=== PATIENT | female | born 1990 | race Caucasian/White ===

== ENCOUNTER 2019-11-23 12:54 | Outpatient (CLI) | payer BC, SELFPAY ==
--- NOTE | ~2019-11-23 | XR_ITS ---
EXAMINATION: XR shoulder RT min 2V INDICATION: Right shoulder pain TECHNIQUE: Four views of the right shoulder are submitted. COMPARISON: None FINDINGS: Normal alignment. No fracture. Glenohumeral and acromioclavicular joint spaces are normal. Soft tissues are unremarkable. IMPRESSION: 1. No acute osseous abnormality. Reviewed, dictated and finalized at location A.
--- NOTE | ~2019-11-23 | CT_ITS ---
EXAMINATION: CT brain wo con EXAM DATE: 11/23/2019 13:24 INDICATION: New daily persistent headaches. TECHNIQUE: Spiral CT of the head was performed without contrast. Axial, coronal and sagittal images were reviewed. The dose-length product (DLP) for this examination was 605.33 mGy-cm. The exposure w as tailored according to patient size, and iterative reconstruction (ASIR) was used as additional dos e reduction technique. There is no prior study for comparison. FINDINGS: There is small mass like region in the left frontal lobe periventricular white matter exten ding to the subependymal region, slightly bulging into the lateral ventricle, measuring about 7 x 7 x 13 mm. Most of this is slightly hyperdense, with several coarse calcifications also present. There i s no surrounding vasogenic edema, although MRI is more sensitive for this. Most likely benign finding , with some top differential possibilities including cavernoma, solitary tuber, less likely arteriove nous malformation (no evidence of serpiginous vessels). A follow-up nonemergent brain MRI examination without and with contrast is recommended for further evaluation. There is no acute intraparenchymal hemorrhage. No evidence of acute infarction. There is no mass ef fect or midline shift. The ventricles are normal in size. There are no extra-axial collections. Th ere are no acute calvarial fractures. The orbits are unremarkable. Soft tissue is unremarkable. The visualized sinuses and mastoid air cells are well aerated. IMPRESSION: Small left frontal periventricular, subependymal mass, could be cavernoma, solitary tuber , less likely arteriovenous malformation or other histology. Recommend brain MRI without and with con trast. Reviewed, dictated and finalized at location A. IMPRESSION: Small left frontal periventricular, subependymal mass, could be cav ernoma, solitary tuber, less likely arteriovenous malformation or other histolo gy. Recommend brain MRI without and with contrast.
== END 2019-11-23 12:55 | disposition home or self-care (01) ==
PROVIDERS: PCP Family Medicine; Visit Provider Nurse Practitioner
DX: M25.511 Pain in right shoulder (principal); G44.52 New daily persistent headache (NDPH)
CPT/HCPCS: 70450; 73030

== ENCOUNTER 2019-11-24 14:44 | Emergency (ER) | payer BC, SELFPAY ==
--- NOTE | ~2019-11-24 | XR_ITS ---
EXAMINATION: XR chest 1V portable INDICATION: Shortness of breath and diffuse chest pain TECHNIQUE: Portable AP chest at 1535 hours COMPARISON: 09/16/2016 FINDINGS: The lungs are free of acute opacities. There is no pleural effusion or pneumothorax. The ca rdiomediastinal silhouette is normal. The visualized bones and soft tissues are unremarkable. IMPRESSION: 1. No acute cardiopulmonary abnormality. Reviewed, dictated and finalized at location A.
[2019-11-24 14:55] VITALS: BP 124/77; PULSE 84; RESP 20; TEMP 37.7; O2SAT 100
--- NOTE | 2019-11-24 14:55 | ECG_ITS ---
Measurements Intervals Zanoni Rate: 89 P: 68 WY: 108 QRS: 84 QRSD: 118 T: -1 QT: 384 QTc: 467 Interpretive Statements SINUS RHYTHM WITH SHORT WY INTERVAL POSSIBLE LEFT ATRIAL ENLARGEMENT INCOMPLETE RIGHT BUNDLE BRANCH BLOCK BORDERLINE ST-T WAVE ABNORMALITY- ANTEROLAT/INF LEADS BORDERLINE ECG Electronically Signed On 11-24-2019 17:12:23 CDT by Yonathan Hernandez D.O.
[2019-11-24 14:59] VITALS: PULSE 92
[2019-11-24 15:16] VITALS: O2SAT 100
--- NOTE | 2019-11-24 15:17 | ED.CHESTPAIN ---
HPI - Chest Pain General Chief Complaint: Chest Pain <Milton Foss PA-C - Last Filed: 11/24/19 16:58> Stated Complaint: anxiety <Milton Foss PA-C - Last Filed: 11/24/19 16:58> Time Seen by Provider: 11/24/19 14:53 <FAITH Lemon Last Filed: 11/24/19 16:58> Source: patient and family <FAITH Lemon Last Filed: 11/24/19 16:58> Mode of arrival: ambulatory <Milton Foss PA-C - Last Filed: 11/24/19 16:58> Limitations: no limitations <Milton Foss PA-C - Last Filed: 11/24/19 16:58> History of Present Illness HPI narrative: Patient is a 29-year-old female who presents to emergency department for evaluation of chest pain shortness of breath anxiety that began over the last several days has been having intermittent episodes today starting at 11:00 the symptoms became more constant has been unable to get the symptoms to stop patient notes she has a history of anxiety but only takes holistic medications for her anxiety. Patient denies any recent illness new medications or supplements or any drug use presents in acute anxiety with family. <Milton Foss PA-C - Last Filed: 11/24/19 16:58> Related Data Home Medications: Home Medications Medication Instructions Recorded Confirmed fexofenadine 60 mg tablet 60 mg PO DAILY tablet 11/20/19 <Milton Foss PA-C - Last Filed: 11/24/19 16:58> Allergies/Adverse Reactions: Allergies Allergy/AdvReac Type Severity Reaction Status Date / Time almond Allergy Itching Verified 11/24/19 15:00 <Milton Foss PA-C - Last Filed: 11/24/19 16:58> Review of Systems Review of Systems: All systems reviewed & are unremarkable except as noted in HPI and below <Milton Foss PA-C - Last Filed: 11/24/19 16:58> PMFSH Past Medical History Medical History: Medical History GERD without esophagitis Seasonal allergies <FAITH Lemon Last Filed: 11/24/19 16:58> Family History Family History: Family History Mother Hypertension Grandparent Family history of malignant neoplasm of breast Other Family history of malignant neoplasm <Milton Foss PA-C - Last Filed: 11/24/19 16:58> Social History Social History: Social History Smoking status: Never smoker Alcohol intake: current Gender identity (if verbalized by the patient): Female <Milton Foss PA-C - Last Filed: 11/24/19 16:58> Exam Narrative: Exam Narrative: GENERAL: Well-appearing, well-nourished, and in no acute distress. HEAD: Normocephalic, atraumatic. EYES: PERRLA and EOMI. ENT: Nares clear, no rhinorrhea or epistaxis. Mucous membranes moist. No CHEST: Clear to auscultation. No respiratory distress. No wheezes rales or rhonchi HEART: Regular rate and rhythm. No murmur heard. Normal peripheral pulses. ABDOMEN: Soft, nontender, nondistended EXTREMITIES: Normal range of motion. No edema. SKIN: Warm, dry, no rash. NEURO: No focal deficits. Alert and oriented x3. Cranial nerves II through XII grossly intact PSYCH: Acutely anxious normal affect <Milton Foss PA-C - Last Filed: 11/24/19 16:58> Course Course Emergency Course: Patient in the room in no distress aware of case findings treatment plan and diagnosis agreeing to follow-up as directed or to return if symptoms worsen or concerns <Milton Foss PA-C - Last Filed: 11/24/19 16:58> Vital Signs Vital signs: Vital Signs Temperature 37.7 C H 11/24/19 14:55 Pulse Rate 84 11/24/19 14:55 Respiratory Rate 20 11/24/19 14:55 Blood Pressure 124/77 11/24/19 14:55 Pulse Oximetry 100 11/24/19 14:55 Temperature 37.6 C 11/24/19 16:31 Pulse Rate 88 11/24/19 16:31 Respiratory Rate 20 11/24/19 16:31 Blood Pressure 99/64
[2019-11-24 15:42] LABS: Basophils Percent Auto 0.6 % (0.2-1.2); Eosinophils Percent Auto 0.6 % (0-4.4); Hematocrit 42.9 % (37.0-47.0); Hemoglobin 14.3 g/dL (12.0-15.0); Immature Granulocyte Absolute 0.01 K/mm3 (0.00-0.031); Immature Granulocyte Percent A 0.2 % (0-0.5); Lymphocytes Absolute Auto 1.54 K/mm3 (0.9-3.2); Lymphocytes Percent Auto 31.2 % (18.3-44.2); Mean Corpuscular HGB Conc 33.3 g/dl (32-36); Mean Corpuscular Hemoglobin 29.6 pg (26-34); Mean Corpuscular Volume 88.8 fl (80-100); Mean Platelet Volume 9.9 fl (7.4-10.4); Monocytes Absolute Auto 0.4 K/mm3 (0.1-0.6); Monocytes Percent Auto 8.3 % (2.6-8.5); Neutrophils Absolute Auto 2.9 K/mm3 (1.3-6.7); Neutrophils Percent Auto 59.1 % (45.5-73.1); Platelet Count Result 227 k/mm3 (150-375); Red Blood Count 4.83 M/mm3 (4.2-5.4); Red Cell Distribution Width 12.4 % (11.5-14.5); White Blood Count 4.9 K/mm3 (4.5-10.0)
[2019-11-24] MEDS: SODIUM CHLORIDE 0.9% IV 1,000 ML 999 ML IV CONT (15:43)
[2019-11-24 15:46] LABS: Add Urine Microscopic? YES; Appearance Urine Clear (Clear); Bilirubin Urine Negative (Negative); Blood Urine Negative (Negative); Color Urine Straw (Yellow); Glucose Urine UA Negative (Negative); Ketones Urine 1+ mg/dL (Negative); Leukocyte Esterase Ur Negative LEU/UL (Negative); Nitrate Urine Negative (Negative); Protein Urine Negative (Negative); Specific Grav Ur 1.008 (1.001-1.035); Squamous Epithelial Cell Urine Occasional /hpf (Few); Urobilinogen Urine Negative mg/dL (<2.0); WBC Urine 0-3 /hpf
[2019-11-24 15:57] LABS: Alanine Aminotransferase 18 U/L (4-35); Albumin Level 4.9 g/dL (3.5-5.1); Alkaline Phosphatase 60 U/L (38-126); Aspartate Amino Transferase 28 U/L (14-36); Bilirubin,Total 0.9 mg/dL (0.2-1.3); Blood Urea Nitrogen 10 mg/dL (7-17); Calcium 9.6 mg/dL (8.4-10.2); Carbon Dioxide 21 mmol/L (22-30); Chloride 107 mmol/L (98-107); Estimated CRCL calculation 83 ml/min; Estimated Glomerular Filt Rate > 60; Glucose 112 mg/dL (65-105); Potassium 3.7 mmol/L (3.4-5.0); Sodium 139 mmol/L (137-145)
[2019-11-24 16:09] LABS: Troponin I < 0.012 ng/mL (0.000-0.034)
[2019-11-24 16:28] LABS: INR 1.2
[2019-11-24 16:29] LABS: Partial Thromboplastin Time 30.2 SECONDS (22.3-36.8)
[2019-11-24 16:31] VITALS: BP 99/64; PULSE 88; RESP 20; TEMP 37.6; O2SAT 100
[2019-11-24 16:44] LABS: D Dimer 0.27 ug/mL (<0.48)
[2019-11-24 17:41] VITALS: BP 96/71; PULSE 82; RESP 16; TEMP 37.6; O2SAT 100
== END 2019-11-24 17:41 | disposition home or self-care (01) ==
PROVIDERS: Emergency Medicine Emergency Medical Services; Emergency Provider Emergency Medicine; PCP Family Medicine
DX: R07.9 Chest pain, unspecified (principal); K21.9 Gastro-esophageal reflux disease without esophagitis; I45.10 Unspecified right bundle-branch block; R94.31 Abnormal electrocardiogram [ECG] [EKG]
CPT/HCPCS: 36415; 71045; 80053; 81001; 81025; 84443; 84484; 85025; 85380; 85610; 85730; 93005; 96361; 96374; 99284; J2060; J7030

== ENCOUNTER 2019-11-26 10:54 | Outpatient (CLI) | payer BC, SELFPAY ==
--- NOTE | ~2019-11-26 | MR_ITS ---
EXAMINATION: MR brain/brain stem wo/w con EXAM DATE: 11/26/2019 11:58 INDICATION: Headaches, abnormal head CT, left periventricular mass. TECHNIQUE: Magnetic resonance imaging (MRI) of the brain/brain stem obtained without contrast. Sagit marissa T1, axial diffusion, gradient echo (T2*), T1, T2, FLAIR sequences obtained. Patient was then inj ected with 10 cc intravenous Multihance contrast. Axial and coronal postcontrast T1 weighted sequence s obtained. Correlation is made to head CT from 11/23/2019. FINDINGS: The left periventricular mass slightly bulging into left lateral ventricular body, measurin g about 7 x 7 x 13 mm, demonstrates heterogeneous T1 and T2 signal intensity, susceptibility includin g peripheral hemosiderin ring on gradient-echo sequence. On postcontrast sequence the central region of this measuring about 7 mm demonstrates robust enhancement. Appearance is most consistent with a ca vernoma, but this lesion demonstrates more robust enhancement than typically seen. No dilated feeding vessels. There is no surrounding vasogenic edema to suggest recent hemorrhage or increase in size. T his may be an incidental finding unrelated to patient's symptoms. There are no areas of restricted diffusion to suggest acute infarction. There is no acute hemorrhage seen on the T2*, a hemosiderin sensitive sequence. The ventricles are normal in size. There are no extra-axial collections. Flow voids are seen in the cerebral arteries on the T2-weighted sequences consistent with their expected patency. The orbits are unremarkable. Soft tissue is unremarkable. IMPRESSION: 1. Small left periventricular mass, appearance most consistent with cavernoma, without associated ed celeste. Majority of these are incidental and not treated. Larger or enlarging, symptomatic lesions somet imes are surgically. Consider 6-12 month follow-up head CT, or neurosurgical consult for further cayden gement as indicated clinically. 2. No acute findings. Reviewed, dictated and finalized at location B. IMPRESSION: 1. Small left periventricular mass, appearance most consistent with cavernoma, without associated edema. Majority of these are incidental and not treated. La rger or enlarging, symptomatic lesions sometimes are surgically. Consider 6-12 month follow-up head CT, or neurosurgical consult for further management as ind icated clinically. 2. No acute findings.
== END 2019-11-26 10:55 | disposition home or self-care (01) ==
LOC: ANHIMG 11:04
PROVIDERS: PCP Family Medicine; Visit Provider Nurse Practitioner
DX: R90.89 Other abnormal findings on diagnostic imaging of central nervous system (principal); R51 Headache
CPT/HCPCS: 70553

== ENCOUNTER 2019-11-29 04:51 | Emergency (ER) | payer BC, SELFPAY ==
--- NOTE | ~2019-11-29 | CT_ITS ---
EXAMINATION: CT abdomen pelvis wo con DATE: 11/29/2019 06:39 INDICATION: Abdominal pain TECHNIQUE: Computed tomography (CT) of the abdomen and pelvis was performed without intravenous contr ast. Automated exposure control and iterative reconstruction technique were employed. The dose-length product was 226.58 mGy-cm. COMPARISON: None FINDINGS: Lung bases are clear. Heart size is normal. No pericardial or pleural effusion. Liver, gallbladder, s pleen, pancreas, bilateral adrenal glands and kidneys are normal. No urolithiasis or hydronephrosis. Normal appendix. No abnormal bowel wall thickening or obstruction. Bladder, uterus and bilateral adne xa are unremarkable. Small amount of likely physiologic free fluid in the cul-de-sac. No free intrape ritoneal gas. No pathologically enlarged abdominal or pelvic lymphadenopathy. Bones are unremarkable. IMPRESSION: 1. Small amount of likely physiologic free fluid in the cul-de-sac. No other acute intra-abdominal/pe lvic process. Reviewed, dictated and finalized at location A. IMPRESSION: 1. Small amount of likely physiologic free fluid in the cul-de-sac. No other ac grindstone intra-abdominal/pelvic process.
[2019-11-29 04:55] VITALS: BP 112/78; PULSE 102; RESP 18; TEMP 36.7; O2SAT 100
--- NOTE | 2019-11-29 05:31 | ED.ABDPAIN ---
HPI - Abdominal Pain General Chief Complaint: Abdominal Pain Stated Complaint: abd pain Time Seen by Provider: 11/29/19 05:29 Source: patient and family Mode of arrival: ambulatory Limitations: no limitations History of Present Illness HPI narrative: Patient is a 29-year-old female who presents for evaluation of abdominal pain, nausea and dehydration. Patient with a recent history of anxiety, has had a visit to our facility earlier in the week for chest pain, then to her primary care physician for palpitations and follow-up, and now to us for abdominal pain and nausea. Patient denying any chest pain at this time. She states she does feel quite anxious. She states she feels as if something is wrong with her but does not know what it is. She is denying any urinary symptoms. She does report decreased oral intake. Related Data Home Medications Medication Instructions Recorded Confirmed fexofenadine 60 mg tablet 60 mg PO DAILY tablet 11/20/19 11/27/19 Allergies Allergy/AdvReac Type Severity Reaction Status Date / Time almond Allergy Itching Verified 11/27/19 13:37 Review of Systems Review of Systems: Narrative: CONSTITUTIONAL: Denies fever, chills, or sweats. EYES: Denies visual changes, redness, or discharge. ENT: Denies rhinorrhea, congestion, sore throat, or otalgia. CARDIOVASCULAR: Denies chest pain, reports palpitations occasionally RESPIRATORY: Denies cough or dyspnea. GASTROINTESTINAL: Reports abdominal pain, nausea and decreased oral intake GENITOURINARY: Denies dysuria or hematuria. SKIN: Denies rash or itching. MUSCULOSKELETAL: Denies back pain, joint pain, or myalgia. NEUROLOGIC: Denies headache, numbness, or weakness. [facility] Social History Social History Smoking status: Never smoker Alcohol intake: current Gender identity (if verbalized by the patient): Female Exam Narrative: Exam Narrative: GENERAL: Awake, alert, conversant, thin, anxious HEAD: Normocephalic, atraumatic. EYES: PERRLA and EOMI. ENT: Nares clear, no rhinorrhea or epistaxis. Mucous membranes moist. NECK: Supple. CHEST: No respiratory distress, breathing even and non labored HEART: Regular rate, sinus rhythm ABDOMEN:Non distended, tender in periumbilical area, no rebound or guarding EXTREMITIES: Normal range of motion. No edema. SKIN: Warm, dry, no rash. NEURO:No focal deficits. Alert and oriented x3 Course Vital Signs Vital signs: Vital Signs Temperature 36.7 C 11/29/19 04:55 Pulse Rate 102 H 11/29/19 04:55 Respiratory Rate 18 11/29/19 04:55 Blood Pressure 112/78 11/29/19 04:55 Pulse Oximetry 100 11/29/19 04:55 Temperature 36.7 C 11/29/19 04:55 Pulse Rate 102 H 11/29/19 04:55 Respiratory Rate 18 11/29/19 04:55 Blood Pressure 112/78 11/29/19 04:55 Pulse Oximetry 100 11/29/19 04:55 MDM - Abdominal Pain MDM Narrative Medical decision making narrative: Patient presented for abdominal pain, nausea and decreased oral intake. Patient is quite anxious on exam, it does seem that much of this contributes to her symptoms although patient is not entirely sure of that at this point. Patient endorsing some periumbilical pain on exam. IV access obtained and labs were drawn. Patient was given IV fluids and antiemetic. Laboratory results show mild leukopenia, no electrolyte derangement, no acute kidney injury. She does have some ketones present in her urine. No UTI. CT scan without acute intra-abdominal abnormality. Patient's abdomen is soft without significant pain or signs of surgical abdomen on serial exams. Lab and imaging evaluations are reviewed and patient is felt to be a reasonable candidate for outpatient management. Pt with high anxiety and I think this contributes. Also considered more rare diagnoses such as Pheochromocytoma, or hyperthyroidism but patient without additional symptoms or vital signs to be indicative of this. Pt may follow
[2019-11-29 05:36] LABS: Basophils Percent Auto 0.5 % (0.2-1.2); Eosinophils Percent Auto 0.5 % (0-4.4); Hematocrit 39.5 % (37.0-47.0); Hemoglobin 13.5 g/dL (12.0-15.0); Immature Granulocyte Absolute 0.01 K/mm3 (0.00-0.031); Immature Granulocyte Percent A 0.3 % (0-0.5); Lymphocytes Absolute Auto 1.19 K/mm3 (0.9-3.2); Lymphocytes Percent Auto 31.1 % (18.3-44.2); Mean Corpuscular HGB Conc 34.2 g/dl (32-36); Mean Corpuscular Hemoglobin 30.1 pg (26-34); Mean Platelet Volume 10.6 fl (7.4-10.4); Monocytes Absolute Auto 0.3 K/mm3 (0.1-0.6); Monocytes Percent Auto 7.8 % (2.6-8.5); Neutrophils Absolute Auto 2.3 K/mm3 (1.3-6.7); Neutrophils Percent Auto 59.8 % (45.5-73.1); Platelet Count Result 226 k/mm3 (150-375); Red Blood Count 4.49 M/mm3 (4.2-5.4); Red Cell Distribution Width 12.4 % (11.5-14.5); White Blood Count 3.8 K/mm3 (4.5-10.0)
[2019-11-29 05:42] LABS: Add Urine Microscopic? YES; Appearance Urine Clear (Clear); Bacteria Urine Trace /hpf; Bilirubin Urine Negative (Negative); Blood Urine Negative (Negative); Color Urine Straw (Yellow); Glucose Urine UA Negative (Negative); Ketones Urine 1+ mg/dL (Negative); Leukocyte Esterase Ur Negative LEU/UL (Negative); Mucus Urine Rare /lpf; Nitrate Urine Negative (Negative); Protein Urine Negative (Negative); RBC Urine 0-2 /hpf (0-2); Specific Grav Ur 1.009 (1.001-1.035); Squamous Epithelial Cell Urine Few /hpf (Few); Urobilinogen Urine Negative mg/dL (<2.0)
[2019-11-29 05:50] LABS: Alanine Aminotransferase 14 U/L (4-35); Albumin Level 4.8 g/dL (3.5-5.1); Alkaline Phosphatase 44 U/L (38-126); Aspartate Amino Transferase 24 U/L (14-36); Bilirubin,Total 0.9 mg/dL (0.2-1.3); Blood Urea Nitrogen 12 mg/dL (7-17); Calcium 9.5 mg/dL (8.4-10.2); Carbon Dioxide 22 mmol/L (22-30); Chloride 106 mmol/L (98-107); Estimated Glomerular Filt Rate > 60; Glucose 102 mg/dL (65-105); Lipase 64 U/L (23-300); Potassium 3.8 mmol/L (3.4-5.0); Sodium 137 mmol/L (137-145)
[2019-11-29] MEDS: METOCLOPRAMIDE HCL INJ 10 MG/2 ML VIAL IV PUSH (06:16)
[2019-11-29] MEDS: SODIUM CHLORIDE 0.9% IV 1,000 ML 999 ML IV CONT (06:16)
== END 2019-11-29 07:32 | disposition home or self-care (01) ==
PROVIDERS: Emergency Provider Emergency Medicine; PCP Family Medicine
DX: R10.33 Periumbilical pain (principal); F41.9 Anxiety disorder, unspecified; R11.0 Nausea
CPT/HCPCS: 36415; 74176; 80053; 81001; 81025; 83690; 84443; 85025; 96361; 96374; 99284; J2765; J7030

== ENCOUNTER → 2020-01-04 09:14 | Outpatient (CLI) | payer BC, SELFPAY ==
--- NOTE | ~2020-01-04 | US_ITS ---
US abdomen limited INDICATION: Nausea. Bloating. PROCEDURE: Realtime right upper abdominal ultrasound. COMPARISON: No prior studies for comparison. FINDINGS: The pancreas is normal without focal mass or pancreatic ductal dilation. Liver echotexture is normal without focal mass or intrahepatic biliary dilatation. There is normal directional flow i n the portal vein. The gallbladder is normal without stones, gallbladder wall thickening or pericholecystic fluid. Comm on bile duct measures 2.4 mm. No sonographic Rae's sign. IMPRESSION: 1: Normal limited abdominal ultrasound. Reviewed, dictated and finalized at location I.
== END ==
DX: R11.0 Nausea (principal)
CPT/HCPCS: 76705

== ENCOUNTER 2020-02-05 08:45 | Outpatient (RCR) | payer BC, SELFPAY ==
--- NOTE | 2020-01-20 09:13 | PTOPEVAL ---
Thank you for referring Kelley Underwood to [facility].? The patient is scheduled to be seen for therapy? 2 x/week for 4-6 weeks. Please review, sign, date and return this plan of care MEG. I agree with and certify that the following plan of care is medically necessary. Referring Physician Date Attending Provider: Annemarie Britton NP Referring Provider: Annemarie Britton NP *PT Outpatient Evaluation Start: 01/20/20 07:57 Freq: Status: Active Protocol: Document 01/20/20 07:59 MED (Rec: 01/20/20 09:01 CAP [id number]) Therapy Assessment Status Assessment Status Assessment Status Evaluation Outpatient Past Medical History Past Medical History Source of Past Medical History Patient,Recalled from Previous Visit, Confirmed with Patient /Family Neurological History Hx Neurological Disorders No Significant History Cardiovascular History Hx Cardiac Disorders No Significant History Respiratory History Hx Respiratory Disorders No Significant History Gastrointestinal History Hx Irritable Bowel Yes Genitourinary History Hx Genitourinary Disorders No Significant History Musculoskeletal History Hx Musculoskeletal Disorders No Significant History Hematological History Hx Hematological Disorders No Significant History Endocrine History Hx Endocrine Disorders No Significant History HEENT History Hx HEENT Disorders No Significant History Integumentary History Hx Skin Disorders No Significant History Reproductive History Hx Section Yes Hx Other Reproductive Disorders Yes: D & C Psychosocial History Hx Anxiety Yes Pain History History of Any Previous or Ongoing No Significant History Instance of Pain Anesthesia History Hx Anesthesia Reactions No Significant History Evaluation Information Problem Diagnosis muscle strain right shoulder Onset August 2019 Cause unknown Additional Evaluation Detail She saw a chiropractor 3 times due to pain caused tension [place] . No relief in symptoms. Subjective Information She is unsure how she injured Query Text:As Reported By Patient/ her right shoulder. Reports Family pain increased with UE movement, prolonged sitting, head position. She has increased pain and stiffness with varied UE position. She also has increased pain with lifting and carrying. She has to carry her 2 yr old 30#
--- NOTE | 2020-01-22 08:15 | PCPTNOTE ---
Pt left message cancelling 01/22/20 appointment due to not feeling well.
--- NOTE | 2020-01-28 09:27 | PCPTNOTE ---
Pt called and canceled appointment this date, unknown reason.
--- NOTE | 2020-01-31 08:32 | PCPTNOTE ---
Addendum entered by Shelia King, PT 01/31/20 08:44: Called patient in regards to missed appointments and left voicemail explaining attendance policy. Left instructions to call back to confirm remaining appointments or appointments will be cancelled. Original Note: Patient did not arrive for scheduled appointment time.
--- NOTE | 2020-02-05 08:58 | PCPTNOTE ---
Patient did not show up for scheduled appointment this date. Called and left message indicating cancellation/no show policy. Will DC skilled therapy services at this time.
--- NOTE | 2020-02-05 09:00 | PCPTNOTE ---
Admitting Provider: Attending Provider: Annemarie Britton NP Patient:Kelley Underwood Date of :1990 Discharge Note Patient has not returned for any further treatments since her initial evaluation on 01/20/20, therefore she will be discharged at this time. She did not achieve her therapy goals due to no follow-up therapy visits/ Thank you for referring this patient to [facility]. Please review, sign, date and return this discharge summary MEG. I have been updated about the patient's current status and I agree with discharge from the above service at this time. Referring Physician Date
== END 2020-02-05 12:46 | disposition home or self-care (01) ==
LOC: ANHPT 08:45
PROVIDERS: PCP Nurse Practitioner Family; Referring Provider Nurse Practitioner Family; Visit Provider Nurse Practitioner Family
DX: S46.911D Strain of unspecified muscle, fascia and tendon at shoulder and upper arm level, right arm, subsequent encounter (principal)
CPT/HCPCS: 97110; 97140; 97161